=== PATIENT | male | born 1965 | race Caucasian/White ===

== ENCOUNTER → 2017-11-06 14:47 | Outpatient (REF) | payer BC, SELFPAY ==
[2017-11-06 21:17] LABS: ALT 33 U/L (12-78); AST 18 U/L (15-37); Alkaline Phosphatase 76 U/L (46-116); Anion Gap 7.8 mmol/L (3-11); BUN 19 mg/dL (7-18); Bilirubin, Total 0.3 mg/dL (0.2-1.0); CO2 30.2 mmol/L (21.0-32.0); CREATININE 1.28 mg/dL (0.70-1.30); Calcium 8.9 mg/dL (8.5-10.1); Chloride 105 mmol/L (98-107); Estimated GFR 59.02 (mL/min/1.73m2); Glucose 90 mg/dL (70-100); Potassium 4.3 mmol/L (3.5-5.1); Sodium 143 mmol/L (136-145)
[2017-11-06 21:26] LABS: Abs Immature Grans 0.02 k/cumm (0.0-0.09); Absolute Basophil Count 0.02 k/cumm (0.0-0.2); Absolute Eosinophil Count 0.15 k/cumm (0.0-0.7); Absolute Lymphocyte Count 1.98 k/cumm (1.2-3.4); Absolute Monocyte Count 0.88 k/cumm (0.11-0.7); Absolute Neutrophil Count 5.54 k/cumm (1.2-6.7); Basophils % 0.2; Eosinophils % 1.7; HCT 41.9 % (40.0-50.0); HGB 13.7 g/dL (13.5-17.5); Immature Grans % 0.2; Lymphocytes % 23.1; Mean Corp. HGB Concentration 32.7 g/dL (32.0-36.0); Mean Corpuscular Hemoglobin 29.3 pg (27.0-33.0); Mean Corpuscular Volume 89.7 fL (80-95); Mean Platelet Volume 11.3 fL (8.0-11.0); Monocytes % 10.2; Neutrophils % 64.6; Platelet Count 215 x1000/uL (130-400); RBC 4.67 m/cumm (4.50-6.00); RBC Distribution Width 13.5 % (11.8-14.1); White Blood Cell Count 8.59 k/cumm (4.4-10.8)
== END ==
LOC: NCHCN 14:47
PROVIDERS: PCP Family Medicine; Visit Provider Nurse Practitioner Family
DX: R10.13 Epigastric pain (principal)
CPT/HCPCS: 80053; 85025

== ENCOUNTER → 2017-11-10 00:19 | Outpatient (CLI) | payer BC, SELFPAY ==
--- NOTE | 2017-11-10 08:42 | DI.REPORT_ITS ---
SYMPTOM/DIAGNOSIS: EPIGASTRIC PAIN, R10.13 ABDOMINAL ULTRASOUND. Routine examination. No priors. The aorta and IVC are unremarkable. The liver is normal in size. No evidence of an hepatic mass is seen. The gallbladder is negative sonographically. No biliary ductal dilatation is present. The pancreatic tail was not well seen due to overlying bowel. The remainder of the pancreas is unremarkable as are the spleen and right kidney. There is an anechoic area in the left renal pelvis. This may represent a prominent extra renal pelvis, obstruction or peripelvic cyst. There is normal blood flow to the left kidney. The portal vein shows normal flow. IMPRESSION: Anechoic space in the left renal hilum. Differential considerations include an extra renal pelvis, pelvic cyst or hydronephrosis. This may be further evaluated with a renal CT scan if clinically appropriate.
== END ==
PROVIDERS: PCP Family Medicine; Visit Provider Nurse Practitioner Family
DX: R10.13 Epigastric pain (principal)
CPT/HCPCS: 76700

== ENCOUNTER → 2017-11-20 00:51 | Outpatient (CLI) | payer BC, SELFPAY ==
--- NOTE | 2017-11-20 08:22 | DI.RPTCT_ITS ---
SYMPTOM/DIAGNOSIS: FLANK PAIN LT, R10.[address]: Comparison is made with abdomen ultrasound dated 10 November 2017 which showed a cystic area in the left renal pelvis. Images were performed from the level of the adrenals through the ischial tuberosities without IV or oral contrast. Ultrasound findings are consistent with a parapelvic cyst. There is no evidence of renal pelvic dilatation. No renal calculi or bladder calculi seen. The right kidney is unremarkable. The inferior portion of the liver and spleen are unremarkable. The gallbladder, adrenals and pancreas are unremarkable. Metallic clips are noted at the base of the cecum. No bowel dilatation or inflammatory changes are seen. The aorta is normal in diameter. The prostate is normal in size There are bilateral fatty containing inguinal hernias right greater than left. IMPRESSION: Left parapelvic renal cysts. No evidence of hydronephrosis or calculi.
== END ==
PROVIDERS: PCP Family Medicine; Visit Provider Nurse Practitioner Family
DX: R10.12 Left upper quadrant pain (principal); N28.1 Cyst of kidney, acquired
CPT/HCPCS: 74176

== ENCOUNTER 2018-08-20 08:23 | Outpatient (REF) | payer BC, SELFPAY ==
[2018-08-20 12:18] LABS: ALT 48 U/L (12-78); AST 21 U/L (15-37); Albumin 4.3 g/dL (3.4-5.0); Alkaline Phosphatase 75 U/L (46-116); Anion Gap 8.7 mmol/L (3-11); BUN 21 mg/dL (7-18); Bilirubin, Total 0.3 mg/dL (0.2-1.0); CO2 29.3 mmol/L (21.0-32.0); CREATININE 1.03 mg/dL (0.70-1.30); Chloride 104 mmol/L (98-107); Cholesterol 180 mg/dL (50-200); Glucose 93 mg/dL (70-100); HDL Cholesterol 34 mg/dL (40-60); LDL CHOLESTEROL 102 mg/dL (<100); Potassium 4.6 mmol/L (3.5-5.1); Sodium 142 mmol/L (136-145); Total Protein 7.2 g/dL (6.4-8.2); Triglyceride 201 mg/dL (30-150)
== END 2018-08-20 08:43 ==
LOC: NCHCN 08:23
PROVIDERS: PCP Family Medicine; Visit Provider Family Medicine
DX: E78.5 Hyperlipidemia, unspecified (principal); Z00.00 Encounter for general adult medical examination without abnormal findings
CPT/HCPCS: 80053; 80061; 83721

== ENCOUNTER 2021-12-17 17:12 | Outpatient (REF) | payer BC, SELFPAY ==
[2021-12-17 19:21] LABS: Abs Immature Grans 0.04 10^3/uL (0.0-0.06); Absolute Basophil Count 0.03 10^3/uL (0.0-0.2); Absolute Eosinophil Count 0.08 10^3/uL (0.0-0.7); Absolute Lymphocyte Count 1.94 10^3/uL (1.2-3.4); Absolute Monocyte Count 0.69 10^3/uL (0.1-0.8); Absolute Neutrophil Count 4.52 10^3/uL (1.2-6.7); Basophils % 0.4; Eosinophils % 1.1; HCT 44.8 % (40.0-50.0); HGB 15.2 g/dL (13.5-17.5); Immature Grans % 0.5; Lymphocytes % 26.6; MCH 29.6 pg (27.0-33.0); MCHC 33.9 % (32.0-36.0); MCV 87 fL (80-95); MPV 11.5 fL (8.0-11.0); Monocytes % 9.5; Neutrophils % 61.9; Platelet Count 212 10^3/uL (130-400); RBC 5.14 10^6/uL (4.36-5.78); RDW 12.7 % (11.8-14.1); RDW-SD 40.6 fL
[2021-12-17 20:29] LABS: ALT 63 U/L (16-63); AST 29 U/L (15-37); Albumin 4.6 g/dL (3.4-5.0); Alkaline Phosphatase 73 U/L (46-116); Anion Gap 9.4 mmol/L (3-11); BUN 21 mg/dL (7-18); Bilirubin, Total 0.3 mg/dL (0.2-1.0); CO2 28.6 mmol/L (21.0-32.0); CREATININE 1.2 mg/dL (0.70-1.30); Calcium 9.6 mg/dL (8.5-10.1); Chloride 104 mmol/L (98-107); Estimated GFR 70.98 (mL/min/1.73m2); Glucose 105 mg/dL (74-106); Magnesium 1.8 mg/dL (1.8-2.4); Potassium 3.8 mmol/L (3.5-5.1); Sodium 142 mmol/L (136-145); Total Protein 7.6 g/dL (6.4-8.2)
[2021-12-20 05:41] LABS: Vitamin D 25 Total 42.9 ng/mL (30-100)
[2021-12-20 08:14] LABS: PSA, Screening 0.7 ng/mL (<=3.5)
== END 2021-12-17 17:13 | disposition home or self-care (01) ==
LOC: NCHCN 17:12
PROVIDERS: PCP Family Medicine; Visit Provider Family Medicine
DX: E78.5 Hyperlipidemia, unspecified (principal); M54.59 Other low back pain; R25.2 Cramp and spasm; Z12.5 Encounter for screening for malignant neoplasm of prostate
CPT/HCPCS: 80053; 82306; 84153; 83735; 84443; 85025